=== PATIENT | male | born 1950 | race Hispanic/Latino ===

== ENCOUNTER 2017-02-05 14:22 | Inpatient (IN) | payer MEDICARE, OTHER ==
[2017-02-05] MEDS ORDERED: TYLENOL PO PRN (14:25)
[2017-02-05] MEDS ORDERED: ZOFRAN IV PRN (14:25)
[2017-02-05] MEDS ORDERED: DUONEB 0.5 MG-3 MG/3 ML SOLN IH PRN (14:25)
[2017-02-05] MEDS ORDERED: DULCOLAX PR PRN (14:25)
[2017-02-05] MEDS ORDERED: MILK OF MAGNESIA PO PRN (14:25)
--- NOTE | 2017-02-05 14:25 | History and Physical Report ---
History of Present Illness Date of admission: 02/05/17 14:22 Chief complaint: I dont feel good, and my arm hurts History of present illness: 66 YO Male with CAD, S/P CABG, HTN, HLD, Metabolic Syndrome, Noncompliance directly admitted at the request of the Cardiology team. Pt seen and evaluated in Dr. Washburn's office and found to have weakness, dizziness, and confusion. Pt had not taken any of his postoperative medication as prescribed. Pt evaluated upon arrival to telemetry floor. Pt denies fever, chills, CP, Palpitations, NVD, leg swelling, calf pain, hemoptysis, syncope, prolonged immobility/travel, Individual/family history of DVT/PE, productive cough, trauma , or recent ill contacts. Past History Past Medical History: CAD, hypertension, hyperlipidemia Past Surgical History: Other (CABG, Stent) Social history: , alcohol abuse. denies: smoking Family history: hypertension Medications and Allergies Allergies Allergy/AdvReac Type Severity Reaction Status Date / Time No Known Allergies Allergy Unverified 02/05/17 14:55 Review of Systems All systems: negative Constitutional: other (arm pain, not feeling well) Exam - Constitutional General appearance: Present: no acute distress, well-nourished - EENT Eyes: Present: PERRL ENT: hearing intact, clear oral mucosa - Neck Neck: Present: supple, normal ROM - Respiratory Respiratory effort: normal Respiratory: bilateral: CTA - Cardiovascular Heart Sounds: Present: S1 & S2. Absent: rub, click - Extremities Extremities: pulses symmetrical, No edema Peripheral Pulses: within normal limits - Abdominal General gastrointestinal: Present: soft, non-tender, non-distended, normal bowel sounds Male genitourinary: Present: normal - Integumentary Integumentary: Present: clear, warm, dry - Musculoskeletal Musculoskeletal: gait normal, strength equal bilaterally - Psychiatric Psychiatric: appropriate mood/affect, intact judgment & insight - Neurologic Neurologic: CNII-XII intact, moves all extremities Results - Labs CBC & Chem 7: 02/05/17 15:47 02/05/17 15:47 Assessment and Plan - Patient Problems (1) Angina at rest Current Visit: Yes Status: Acute Plan to address problem: Cardiology team consulted, serial cardiac enzymes, ekg, telemetry monitoring, supportive care. (2) Encephalopathy acute Current Visit: Yes Status: Acute Plan to address problem: Resolved at time of exam, continue current care. (3) CAD (coronary artery disease) Current Visit: Yes Status: Chronic Qualifiers: Coronary Disease-Associated Artery/Lesion type: C [place] vs. transplanted heart: N Associated angina: A Plan to address problem: Cardiology team consulted, continue current care. resume anticoagulation (4) HTN (hypertension) Current Visit: Yes Status: Acute Qualifiers: Hypertension type: H Plan to address problem: monitor bp q shift, continue current therapy (5) DVT prophylaxis Current Visit: Yes Status: Acute
[2017-02-05] MEDS ORDERED: SODIUM CHLORIDE FLUSH SYRINGE 10 ML IV PRN (14:27)
[2017-02-05] MEDS ORDERED: PROVENTIL IH PRN (15:18)
--- NOTE | 2017-02-05 15:32 | Consultation ---
History of Present Illness Consult date: 02/05/17 Requesting physician: BOBBI BOWLING Consult reason: known to you History of present illness: Pt is a 66 YO male with a past medical history significant for CAD, status post PCI in 2002 and s/p CABG in 12/2016. He was sent from our office today per Dr. Washburn for evaluation of weakness. In December 2016, he presented to [facility] with chest pain and dyspnea. He ruled in for a non-ST segment elevated elevation myocardial infarction. Coronary angiography revealed severe three-vessel CAD. He subsequently underwent CABG 4 with SANTOS to the LAD, reverse SVG to PDA, reverse SVG to OM1, reverse SVG to D1 on 01/21/2017. Following his surgery, it appears that he may have developed an acute DVT of one of his lower extremities. He was subsequently transferred to [facility] for rehabilitation where he spent one week. He was discharged home 5 days ago. Although he received a prescription for medications at discharge, he has not filled those prescriptions including Xarelto. Rather, he has been taking his old medications which did not include any anticoagulation. In addition, instead of Coreg 6.25 mg twice a day and 20 mg of Lasix on his new discharge prescription, he has been taking Coreg 25 mg twice a day as in the past with valsartan 160 mg daily. He was brought to the office today by his sister because the patient has been very weak and is unable to ambulate without a wheelchair since last Saturday. He experiences dizziness when he first gets up from the sitting position since last Saturday. Moreover, he lives alone and cannot care for himself. He denies chest pain or dyspnea. He has chronic orthopnea which is unchanged. He complains of right arm numbness which was present since last Saturday. Past History Past Medical History: CAD, hypertension, hyperlipidemia Past Surgical History: CABG Social history: Lives alone, alcohol abuse. denies: smoking, prescription drug abuse Medications and Allergies Allergies Allergy/AdvReac Type Severity Reaction Status Date / Time No Known Allergies Allergy Unverified 02/05/17 14:55 Active Meds: Active Medications Acetaminophen (Tylenol) 650 mg PO Q4H PRN PRN Reason: Pain MILD(1-3)/Fever >100.5/URIARTE Albuterol (Proventil) 2.5 mg IH Q4HRT PRN PRN Reason: Shortness Of Breath Bisacodyl (Dulcolax) 10 mg MS QDAY PRN PRN Reason: Constipation unrelieved by MOM Magnesium Hydroxide (Milk Of Magnesia) 30 ml PO Q4H PRN PRN Reason: Constipation Ondansetron HCl (Zofran) 4 mg IV Q8H PRN PRN Reason: N/V unrelieved by Reglan Sodium Chloride (Sodium Chloride Flush Syringe 10 Ml) 10 ml IV PRN PRN PRN Reason: LINE FLUSH Review of Systems Constitutional: no weight loss, no weight gain, no fever, no chills, no sweats Ears, nose, mouth and throat: no ear pain, no nose pain, no sinus pressure, no sinus pain Cardiovascular: no chest pain, no orthopnea, no palpitations, no rapid/ irregular heart beat, no edema, no syncope, no lightheadedness, no shortness of breath, no dyspnea on exertion Respiratory: no cough, no congestion, no wheezing, no pain Gastrointestinal: no abdominal pain, no nausea, no vomiting, no diarrhea, no constipation, no change in bowel habits Genitourinary Male: no dysuria, no hematuria, no flank pain, no discharge, no urinary frequency, no urinary hesitancy Musculoskeletal: arm numbness/tingling (RUE ), no neck stiffness, no neck pain, no shooting arm pain, no low back pain, no shooting leg pain, no leg numbness/ tingling, no redness of joints Integumentary: no rash, no pruritis, no redness, no sores, no wounds Neurological: weakness (generalized ), numbness (RUE ), no head injury, no paralysis, no parathesias, no tingling, no seizures, no syncope, no lack of coordination, no headaches, no change in speech, no change in mentation, no confusion Endocrine: no cold intolerance, no heat intolerance Hematologic/Lymphatic: no easy bruising, no easy bleeding, no lymphadenopathy Allergic/Immunologic: no urticaria, no wheezing, no persistent infections Physical Examination General appearance: no acute distress HEENT: Positive: PERRL, Normocephaly, Mucus Membranes Moist Neck: Positive: neck supple, trachea midline Cardiac: Positive: Reg Rate and Rhythm, S1/S2 Lungs: Positive: Normal Exam, clear to auscultation, Normal Breath Sounds Neuro: Positive: Grossly Intact, Cranial Nerve 2-12 Intact Abdomen: Positive: Unremarkable, Soft. Negative: Tender Skin: Positive: Clear. Negative: Rash, Wound Musculoskeletal: No Fluid Collection, No Pain, Normal Range of Motion Extremities: Present: normal, upper extr. pulses, lower extr. pulses. Absent: edema Results 02/05/17 15:47 02/05/17 15:47 - Imaging and Cardiology Echo: pending EKG: pending Assessment and Plan Assessment: Generalized weakness / right arm numbness CAD, s/p CABG x 4 on 01/21/2017 HTN HLP RLE Superficial VTE per records ETOH use - drinks 10-12 beers daily. Plan: Obtain echo. Obtain CXR. Obtain EKG. Obtain CBC, CMP, thyroid profile, PT/INR, and cardiac enzymes. Recommend resuming home medications per primary, including Coreg and Xarelto, once vital signs and labwork are obtained. Assessment and plan reviewed with pt at bedside. The patient has been seen in conjunction with Dr. ALIVIA Renee who agrees with the assessment and plan of care.
[2017-02-05 16:06] LABS: Hemoglobin 12.1 gm/dl (11.8-15.2); Mean Corpuscular HGB Conc 32 % (32-34); Mean Corpuscular Hemoglobin 29 pg (28-32); Mean Corpuscular Volume 92 fl (84-94); Platelet Count 506 K/mm3 (140-440); Red Blood Count 4.11 M/mm3 (3.65-5.03); Red Cell Distribution Width 17.9 % (13.2-15.2); White Blood Count 9.6 K/mm3 (4.5-11.0)
[2017-02-05 16:17] LABS: INR 1.06 (0.87-1.13)
[2017-02-05 16:44] LABS: Creatine Kinase MB 46.1 ng/mL (0.0-4.0)
[2017-02-05 16:47] LABS: Albumin 4.2 g/dL (3.9-5); Albumin/Globulin Ratio 1.4 %; BUN/Creatinine Ratio 19.33; Bilirubin,Total 0.7 mg/dL (0.1-1.2); Calcium 9.6 mg/dL (8.4-10.2); Chloride 102.6 mmol/L (98-107); Total Protein 7.1 g/dL (6.3-8.2)
[2017-02-05 20:31] LABS: Creatine Kinase MB 39.2 ng/mL (0.0-4.0)
--- NOTE | 2017-02-05 20:59 | Admit Criteria Form ---
Admission Criteria Documentation: CARDIOLOGY GRG Clinical Indications for Admission to Inpatient Care ( Place 'X' for any and all applicable criteria): Hospital admission is needed for appropriate care of the patient because of ANY ONE of the following (1): [ ] I. Hemodynamic instability as indicated by ALL of the following (1)(2)(3) (4)(5) [ ]a) Vital signs or other findings not as expected for chronic patient condition or baseline [ ]b) Instability indicated by ANY ONE of the following: [ ]i) Hypotension [ ]ii) Symptomatic Tachycardia unresponsive to treatment ( e.g., analgesia, fluids, sedation as indicated) [ ]iii) Inadequate perfusion indicated by ANY ONE of the following: [ ] 1) Lactic acidosis (> 2 mmol/L) [ ] 2) New abnormal capillary refill (> 3 seconds) [ ] 3) Reduced urine output [ ] 4) New altered mental status [ ]iv) Orthostatic vital sign changes unresponsive to treatment (e.g., fluids) [ ]v) IV inotropic or vasopressor medication required to maintain adequate blood pressure or perfusion [ ] II. Severe heart failure as indicated by ANY ONE of the following(17)(18) [ ]a) Respiratory distress [ ]b) Hypotension [ ]c) Anasarca (refractory to outpatient therapy) [ ]d) Cardiac arrhythmias of immediate concern [ ]e) Myocardial ischemia [ ] III. Cardiac arrhythmias or findings of immediate concern indicated by ANY ONE of the following (19)(20): [ ] a) Heart rhythms that are inherently dangerous or unstable indicated by ANY ONE of the following (21)(22)(23): [ ] i) Resuscitated ventricular fibrillation or cardiac arrest [ ] ii) Ventricular escape rhythm [ ] iii) Sustained ventricular tachycardia (30 seconds or more of ventricular rhythm at greater than 100 beats per minute) [ ] iv) Nonsustained ventricular tachycardia and ANY ONE of the following: [ ] 1) Suspected cardiac ischemia as cause or consequence of ventricular tachycardia [ ] 2) In setting of acute myocarditis [ ] b) Unstable cardiac conduction defects indicated by ANY ONE of the following(23)(24)(25) [ ] i) Type II second-degree atrioventricular block [ ]ii) Third-degree atrioventricular block [ ]iii) New-onset left bundle branch block with suspected myocardial ischemia [ ]c) Any heart rhythm and ANY ONE of the following (21)(22)(26)(27) (28) [ ] i) Continuous long-term ECG monitoring needed (e.g., initiation of drug requiring monitoring for more than 24 hours) [ ] ii) Patient has automatic implanted cardioverter defibrillator that is repeatedly firing, malfunctioning, or in need of immediate adjustment of settings beyond the scope of ambulatory or observation care [ ]d) Heart rhythms of concern due to ANY ONE of the following: [ ] i) Hypotension [ ] ii) Respiratory distress [ ] iii) Association with other significant symptoms (e.g., bradycardia with syncope or ongoing dizziness, supraventricular tachycardia with chest pain (14)(15)(17) [ ] IV. Monitoring for cardiac contusion beyond the scope of observation care needed [A](30)(31)(32) [ ] V. Surgical or device complication (e.g., valve replacement complication , pacemaker dysfunction) (35)(41)(44)(45)(46) [ ] . Inpatient palliative care needed. [B](49) Also use Inpatient Palliative Care Criteria [ ] VII. Nonbacterial thrombotic (marantic) endocarditis (36)(43)(47)(48) [X ] VIII. Cardiology condition, symptom, or finding for which emergency and observation care has failed or are not considered appropriate. [ ] IX. Acute valvular disease requiring inpatient as indicated by ANY ONE of the following (41) [ ]a) Acute valvular regurgitation (42) [ ]b) Noninfectious valvulitis (43) [ ]c) Obstructive valve thrombosis [ ]d) Paravalvular leak [ ]e) Other significant valvular disorder remaining after emergency or observation level of care (as appropriate) [ ]X. Pericardial disease requiring inpatient treatment as indicated by ANY ONE of the following (33)(34)(35)(36)(37) [ ]a) Suspected tamponade (38)(39)(40) [ ]b) Hemopericardium [ ]c) Other significant pericardial disorder remaining after emergency or observation level of care (as appropriate) [ ] XI. Cardiac ischemia beyond scope of emergency and observation care. [ ] XII. Hypertension requiring inpatient treatment as indicated by ANY ONE of the following (6)(7)(8) [ ]a) SBP greater than 220 mm Hg or DBP greater than 120 mmHg despite treatment [ ]b) SBP greater than 140 mm Hg or DBP greater than 100 mm Hg with evidence of acute end organ damage as indicated by ANY ONE of the following [ ] i) Altered mental status [ ] ii) Acute renal failure as indicated by new onset of ANY ONE of the following (9)(10)(11)(12)(13) [ ]1) 3-fold rise in serum creatinine from baseline [ ]2) Serum creatinine greater than 4 mg/dL ( 354 micromoles/L) with acute rise greater than 0.5 mg/dL (44.2 micromoles/L) [ ]3) Reduction of more than 75% in estimated glomerular filtration rate from baseline [ ]4) Estimated glomerular filtration rate less than 35 mL/min/1.73m2 (0.59 mL/sec/1.73m2) in child up to 18 years of age [ ]5) Cessation of urine output indicated by ALL of the following [ ]A. Adequate volume status [ ]B. Inadequate urine output as indicated by ANY ONE of the following [ ]a. Urine output less than 0.3 mL/kg/hr for 24 hours [ ]b. Anuria (urine output less than 0.1 mL/kg/hr) for 12 hours [ ] iii) Aortic dissection [ ] iv) Myocardial Ischemia [ ] v) Left ventricular heart failure [ ]vi) Retinal Hemorrhage [ ]vii) Other significant finding [ ]c) Hypertension in child requiring inpatient treatment as indicated by ALL of the following(14)(15)(16) [ ] i) Outpatient treatment not effective, not available, or not appropriate [ ]ii) SBP or DBP greater than 95th percentile for age [ ]iii) Evidence of acute end organ damage as indicated by ANY ONE of the following [ ]1) Altered mental status [ ]2) Acute renal failure as indicated by new onset of ANY ONE of the following(9)(10)(11)(12)(13) [ ]A. 3-fold rise in serum creatinine from baseline [ ]B. Serum creatinine greater than 4 mg/dL (354 micromoles/L) with acute rise greater than 0.5 mg/dL (44.2 micromoles/L) [ ]C. Reduction of more than 75% in estimated glomerular filtration rate from baseline [ ]D. Estimated glomerular filtration rate less than 35 mL/min/1.73m2 (0.59 mL/sec/1.73m2) in child up to 18 years of age [ ]E. Cessation of urine output indicated by ALL of the following [ ]a. Adequate volume status [ ]b. Inadequate urine output as indicated by ANY ONE of the following [ ]i) Urine output less than 0.3 mL/kg/hr for 24 hours [ ]ii) Anuria ( urine output less than 0.1 mL/kg/hr) for 12 hours [ ]3) Severe headache [ ]4) Visual disturbance [ ]5) Retinal hemorrhage [ ]6) Other significant finding [ ]XIII. Complications of transplanted heart indicated by ANY ONE of the following(61): [ ]a) Acute graft rejection requiring inpatient management (eg, intravenous immunosuppression)(62)(63) [ ]b) Acute graft heart failure indicated by ANY ONE of the following(64): [ ]i) Hemodynamic instability [ ]ii) Cardiac arrhythmias of immediate concern [ ]iii) Pulmonary edema that is very severe (eg, mechanical ventilation needed, imminent or likely, need for 100% oxygen to keep oxygen saturation above 90%) [ ]iv) Pulmonary edema that is persistent as indicated by ALL of the following: [ ]1) New need for oxygen therapy to keep oxygen saturation above 90% (or increased FiO2 need from baseline) [ ]2) Has not improved sufficiently with emergency department or observation care IV diuretics or other heart failure treatments[E] [ ]v) Altered mental status that is severe or persistent [ ]vi) Increased creatinine (new on laboratory test) with reduction of more than 50% in estimated glomerular filtration rate from baseline [ ]vii) Progressively (ongoing) rising creatinine (known from past laboratory test) with reduction of more than 25% in estimated glomerular filtration rate from baseline [ ]viii) Acute renal failure [ ]ix) Acute peripheral ischemia (eg, examination shows pulseless, cool, mottled, or cyanotic extremity) [ ]x) Pulmonary artery catheter monitoring needed [ ]xi) Other sign or symptom of heart failure requiring inpatient treatment (ie, too severe or not responsive to outpatient and observation care treatment) [ ]c) Infection requiring inpatient management (eg, Hemodynamic instability, need for intravenous antimicrobial treatment)(66)(67)(68)(69)(70) [ ]d) Cardiac allograft vasculopathy requiring inpatient management ( eg evidence of cardiac ischemia)(71) [ ]e) Other complication of transplanted heart (eg, stroke, severe pulmonary hypertension, severe valvular dysfunction) requiring inpatient management(72) The original [facility] [email or web address] content created by [facility] [employer] has been revised. The portions of the content which have been revised are identified through the use of italic text or in bold, and [facility] has neither reviewed nor approved the modified material. All other unmodified content is copyright [facility] [employer]. Please see references footnoted in the original [facility] [employer] edition 2016 Admission Criteria Met: Yes
[2017-02-06] MEDS: MORPHINE IV PRN ×5 (00:55→22:21)
--- NOTE | 2017-02-06 08:46 | XRay Report ---
CERVICAL SPINE SERIES THREE VIEWS: 02/05/17 15:07:00 CLINICAL: Neck pain. FINDINGS: Status post in anterior fusion at C7-T1. Normal alignment through T2. Large bridging anterior osteophytes from C3-4 through C5-6. A smaller posterior osteophyte at C5-6. Normal appearance of the hardware. The odontoid and C1 are intact. Minimal facet joint disease. The soft tissues and airway are normal. IMPRESSION: Status post anterior fusion C7-T1. Extensive degenerative change with large anterior osteophytes from C3-4 through C5-6. The osteophytes are large enough to possibly impair swallowing.
--- NOTE | 2017-02-06 08:48 | XRay Report ---
X-ray RIGHT SHOULDER ONE VIEW: 02/05/17 15:07:00 CLINICAL: Right shoulder pain. FINDINGS: Normal glenohumeral alignment. Mild acromioclavicular joint arthritis. No fracture or dislocation. No bone lesion. Normal soft tissues. IMPRESSION: Mild acromioclavicular joint arthritis but otherwise normal.
--- NOTE | 2017-02-06 08:56 | XRay Report ---
AP CHEST : 02/05/17 15:07:00 CLINICAL: Chest pain. COMPARISON:05/20/08 FINDINGS: Normal heart and pulmonary vessels.The mediastinum is relatively wide but this is partially due to rotation and is not significantly changed compared to the prior exam. The lungs are normally expanded and clear. The bones and soft tissues are unremarkable.Median sternotomy wires. IMPRESSION: No acute cardiopulmonary process.
[2017-02-06] MEDS: XARELTO PO SCH (10:52)
--- NOTE | 2017-02-06 11:12 | Progress Note ---
Assessment and Plan Assessment: Generalized weakness / right arm numbness & tingling - right shoulder XRay demonstrated mild joint arthritis; cervical spine series demonstrated anterior fusion, extensive degenerative change with large anterior osteophytes which are large enough to possibly impair swallowing per radiology / ? radiculopathy CAD, s/p CABG x 4 on 01/21/2017 HTN HLP RLE Superficial VTE in saphenous vein - on Xarelto. ETOH use - drinks 10-12 beers daily. Plan: Await echo. Resume home Coreg, ASA 81, and lipitor. Xarelto per primary. Consult neurology in regards to ? radiculopathy / RUE numbness and tingling. Assessment and plan reviewed with pt at bedside. The patient has been seen in conjunction with Dr. Ty Renee who agrees with the assessment and plan of care. Subjective Date of service: 02/06/17 Principal diagnosis: weakness Interval history: Pt resting comfortably in bed, denies any cardiac complaints. c/o right shoulder aching pain and right arm numbness/tingling. VSS, no acute events overnight. Objective Last Vital Signs Temp 98.8 F 02/06/17 05:55 Pulse 70 02/06/17 05:55 Resp 20 02/06/17 05:55 BP 95/50 02/06/17 05:55 Pulse Ox 96 02/06/17 08:55 - Physical Examination General: Appears Well, No Apparent Distress HEENT: Positive: PERRL, Normocephaly, Mucus Membranes Moist Neck: Positive: neck supple, trachea midline Cardiac: Positive: Reg Rate and Rhythm, S1/S2 Lungs: Positive: Normal Exam, clear to auscultation, Normal Breath Sounds Neuro: Positive: Grossly Intact, Cranial Nerve 2-12 Intact, Other (RUE numbness/ tingling ) Abdomen: Positive: Unremarkable, Soft. Negative: Tender Skin: Positive: Clear. Negative: Rash, Wound Musculoskeletal: No Fluid Collection, No Pain, Normal Range of Motion Extremities: Present: normal, upper extr. pulses, lower extr. pulses. Absent: edema - Labs and Meds Cardiac Enzymes 02/05/17 02/05/17 02/05/17 Range/Units 15:40 15:47 19:26 AST 59 H (5-40) units/L CK-MB (CK-2) 46.1 H 39.2 H (0.0-4.0) ng/mL Coagulation 02/05/17 Range/Units 15:47 PT 13.7 (12.2-14.9) Sec. INR 1.06 (0.87-1.13) Lipids 02/05/17 Range/Units 15:40 Triglycerides 186 H (2-149) mg/dL Cholesterol 192 (50-199) mg/dL HDL Cholesterol 34 L (40-59) mg/dL Cholesterol/HDL Ratio 5.64 % CBC 02/05/17 Range/Units 15:47 WBC 9.6 (4.5-11.0) K/mm3 RBC 4.11 (3.65-5.03) M/mm3 Hgb 12.1 (11.8-15.2) gm/dl Hct 38.0 (35.5-45.6) % Plt Count 506 H (140-440) K/mm3 Comprehensive Metabolic Panel 02/05/17 Range/Units 15:47 Sodium 142 (137-145) mmol/L Potassium 4.0 (3.6-5.0) mmol/L Chloride 102.6 (98-107) mmol/L Carbon Dioxide 20 L (22-30) mmol/L BUN 29 H (9-20) mg/dL Creatinine 1.5 (0.8-1.5) mg/dL Glucose 129 H (75-100) mg/dL Calcium 9.6 (8.4-10.2) mg/dL AST 59 H (5-40) units/L ALT 30 (7-56) units/L Alkaline Phosphatase 145 H (35-129) units/L Total Protein 7.1 (6.3-8.2) g/dL Albumin 4.2 (3.9-5) g/dL - Imaging and Cardiology EKG: report reviewed Echo: pending - Telemetry EKG Rhythm: Sinus Rhythm - EKG Sinus rhythms and dysrhythmias: sinus rhythm
--- NOTE | 2017-02-06 12:29 | Progress Note ---
Assessment and Plan Assessment and plan: 66 YO Male with CAD, S/P CABG, HTN, HLD, Metabolic Syndrome, Noncompliance directly admitted at the request of the Cardiology team. Pt seen and evaluated in Dr. Washburn's office and found to have weakness, dizziness, and confusion. Pt had not taken any of his postoperative medication as prescribed. Pt evaluated upon arrival to telemetry floor. Pt denies fever, chills, CP, Palpitations, NVD, leg swelling, calf pain, hemoptysis, syncope, prolonged immobility/travel, Individual/family history of DVT/PE, productive cough, trauma , or recent ill contacts. 1. RUE numbness and tingling, fup Neurology consult fup MR brain and MR C spine 2. Generalized weakness 3. Etoh abuse 4. CAD sp CABG 5. Poor medication compliance 6. Superficial Venous Thrombosis of LE [facility] Physical - Constitutional Vitals: Temp Pulse Resp BP Pulse Ox 98.8 F 70 20 95/50 96 02/06/17 05:55 02/06/17 05:55 02/06/17 05:55 02/06/17 05:55 02/06/17 08:55 General appearance: Present: no acute distress, well-nourished Results - Labs CBC & Chem 7: 02/05/17 15:47 02/05/17 15:47 Labs: Laboratory Last Values WBC 9.6 K/mm3 (4.5-11.0) 02/05/17 15:47 RBC 4.11 M/mm3 (3.65-5.03) 02/05/17 15:47 Hgb 12.1 gm/dl (11.8-15.2) 02/05/17 15:47 Hct 38.0 % (35.5-45.6) 02/05/17 15:47 MCV 92 fl (84-94) 02/05/17 15:47 MCH 29 pg (28-32) 02/05/17 15:47 MCHC 32 % (32-34) 02/05/17 15:47 RDW 17.9 % (13.2-15.2) H 02/05/17 15:47 Plt Count 506 K/mm3 (140-440) H 02/05/17 15:47 PT 13.7 Sec. (12.2-14.9) 02/05/17 15:47 INR 1.06 (0.87-1.13) 02/05/17 15:47 Sodium 142 mmol/L (137-145) 02/05/17 15:47 Potassium 4.0 mmol/L (3.6-5.0) 02/05/17 15:47 Chloride 102.6 mmol/L (98-107) 02/05/17 15:47 Carbon Dioxide 20 mmol/L (22-30) L 02/05/17 15:47 Anion Gap 23 mmol/L 02/05/17 15:47 BUN 29 mg/dL (9-20) H 02/05/17 15:47 Creatinine 1.5 mg/dL (0.8-1.5) 02/05/17 15:47 Estimated GFR 47 ml/min 02/05/17 15:47 BUN/Creatinine Ratio 19.33 % 02/05/17 15:47 Glucose 129 mg/dL (75-100) H 02/05/17 15:47 Calcium 9.6 mg/dL (8.4-10.2) 02/05/17 15:47 Total Bilirubin 0.7 mg/dL (0.1-1.2) 02/05/17 15:47 AST 59 units/L (5-40) H 02/05/17 15:47 ALT 30 units/L (7-56) 02/05/17 15:47 Alkaline Phosphatase 145 units/L (35-129) H 02/05/17 15:47 Total Creatine Kinase 339 units/L (55-170) H 02/05/17 19:26 CK-MB (CK-2) 39.2 ng/mL (0.0-4.0) H 02/05/17 19:26 CK-MB (CK-2) Rel Index 11.5 (0-4) H 02/05/17 19:26 Troponin T 0.782 ng/mL (0.00-0.029) H* 02/05/17 19:26 Total Protein 7.1 g/dL (6.3-8.2) 02/05/17 15:47 Albumin 4.2 g/dL (3.9-5) 02/05/17 15:47 Albumin/Globulin Ratio 1.4 % 02/05/17 15:47 Triglycerides 186 mg/dL (2-149) H 02/05/17 15:40 Cholesterol 192 mg/dL (50-199) 02/05/17 15:40 LDL Cholesterol Direct 121 mg/dL (50-130) 02/05/17 15:40 HDL Cholesterol 34 mg/dL (40-59) L 02/05/17 15:40 Cholesterol/HDL Ratio 5.64 % 02/05/17 15:40 TSH 4.560 mlU/mL (0.270-4.200) H 02/05/17 15:55 Thyroxine (T4) 8.0 ug/dL (4.0-12.0) 02/05/17 15:55
[2017-02-06] MEDS: BABY ASPIRIN PO SCH (13:23)
[2017-02-06] MEDS: COREG PO SCH ×2 (13:23→21:31)
[2017-02-07] MEDS: MORPHINE IV PRN ×4 (03:35→22:12)
[2017-02-07] MEDS: BABY ASPIRIN PO SCH (09:33)
[2017-02-07] MEDS: COREG PO SCH ×2 (09:33→22:12)
[2017-02-07] MEDS: XARELTO PO SCH (09:34)
--- NOTE | 2017-02-07 10:30 | Consultation ---
History of Present Illness Consult date: 02/07/17 Requesting physician: ARNEL SCOTT Reason for Consult: R sided numbness Chief complaint: R arm numbness and tingling History of present illness: 66 YO M 3 weeks ago had CABG. Post op he noted R arm numbness and tingling and possible mild weakness. He affirms pain throughout the arm but denies neck pain. Sx may have preceded surgery but pt is not clear. Sx are constant. There are no clear aggravating, relieving or temporal factors beyond some association w/ pain when elevating the R arm. Severity was enough to cause inability to effectively use the right arm. Past History Past Medical History: CAD, hypertension, hyperlipidemia Past Surgical History: CABG, Other (CABG, Stent) Social history: , alcohol abuse. denies: smoking, prescription drug abuse, IV drug use Family history: hypertension Medications and Allergies Allergies Allergy/AdvReac Type Severity Reaction Status Date / Time No Known Allergies Allergy Unverified 02/05/17 14:55 Active Meds: Active Medications Acetaminophen (Tylenol) 650 mg PO Q4H PRN PRN Reason: Pain MILD(1-3)/Fever >100.5/URIARTE Albuterol (Proventil) 2.5 mg IH Q4HRT PRN PRN Reason: Shortness Of Breath Aspirin (Baby Aspirin) 81 mg PO QDAY [facility] Last Admin: 02/07/17 09:33 Dose: 81 mg Atorvastatin Calcium (Lipitor) 80 mg PO QHS [facility] Last Admin: 02/06/17 21:31 Dose: 80 mg Bisacodyl (Dulcolax) 10 mg NE QDAY PRN PRN Reason: Constipation unrelieved by MOM Carvedilol (Coreg) 3.125 mg PO BID [facility] Last Admin: 02/07/17 09:33 Dose: 3.125 mg Magnesium Hydroxide (Milk Of Magnesia) 30 ml PO Q4H PRN PRN Reason: Constipation Morphine Sulfate (Morphine) 2 mg IV Q4H PRN PRN Reason: Pain, Moderate (4-6) Last Admin: 02/07/17 09:34 Dose: 2 mg Ondansetron HCl (Zofran) 4 mg IV Q8H PRN PRN Reason: N/V unrelieved by Reglan Last Admin: 02/07/17 09:34 Dose: 4 mg Rivaroxaban (Xarelto) 10 mg PO QDAY EBONY PRN Reason: Protocol Last Admin: 02/07/17 09:34 Dose: 10 mg Sodium Chloride (Sodium Chloride Flush Syringe 10 Ml) 10 ml IV PRN PRN PRN Reason: LINE FLUSH Review of Systems All systems: negative Constitutional: weakness Cardiovascular: chest pain, shortness of breath, dyspnea on exertion Respiratory: shortness of breath, dyspnea on exertion Neurological: weakness, parathesias, numbness, tingling, balance difficulties, motor disturbance, sensory deficit, no convulsions, no change in speech, no double vision, no loss of vision, no paralysis Physical Examination - Vital Signs Vital Signs: Vital Signs Temp Pulse Resp BP Pulse Ox 97.5 F L 86 20 116/2 99 02/05/17 16:05 02/05/17 16:05 02/05/17 16:05 02/05/17 16:05 02/05/17 16:05 - Constitutional General appearance: comfortable, older than stated age - EENT EENT: Present: ATNC, PERRL, mucous membranes moist, hearing intact, vision intact - Respiratory Respiratory: Present: chest non-tender, normal breath sounds, no respiratory distress - Cardiovascular Cardiovascular: Present: regular rate Extremities: Present: no peripheral edema bilatateraly, no clubbing, cyanosis, no inflammation, no ischemia or petechiae - Gastrointestinal Gastrointestinal: Present: normoactive bowel sounds, soft, non-distended - Integumentary Integumentary: Present: normal - Neurologic Cranial nerve examination: PERRL, EOMI, VFF, V1/V2/V3 grossly intact, face symmetric, tongue midline, intact, intact shoulder shrug, intact cough reflex, Intact Vestibulo-ocular r, intact corneal reflex, normal palatal elevation Speech examination: intact Sensorimotor examination: intact Detailed motor examination: full strength in all barbara Motor examination - right side: 03/01: biceps, triceps, wrist flexion, wrist extension, tobacco sample puller, hip flexors, knee extensors, dorsiflexion, toe extension (EHL) , plantarflexion Motor examination - left side: 03/01: biceps, triceps, wrist flexion, wrist extension, tobacco sample puller, hip flexors, knee extensors, dorsiflexion, toe extension (EHL) , plantarflexion Detailed sensory examination: light touch, temperature (diminished on R arm) Reflex and gait examination: intact Reflexes: 1+: ankle, 2+: bicep, knee, tricep - Musculoskeletal Musculoskeletal: Present: pain in joint (throughout R arm elbow and shoulder), no fluid collection, normal range of motion - Psychiatric Psychiatric: Present: mood/affect appropriate, cooperative Results - Laboratory Findings CBC and BMP: 02/05/17 15:47 02/05/17 15:47 Abnormal Lab Findings: Abnormal Labs 02/05/17 02/05/17 02/05/17 15:40 15:47 15:47 RDW 17.9 H Plt Count 506 H Carbon Dioxide 20 L BUN 29 H Glucose 129 H AST 59 H Alkaline Phosphatase 145 H Total Creatine Kinase 380 H CK-MB (CK-2) 46.1 H CK-MB (CK-2) Rel Index 12.1 H Troponin T 0.705 H* Triglycerides 186 H HDL Cholesterol 34 L TSH 02/05/17 02/05/17 15:55 19:26 RDW Plt Count Carbon Dioxide BUN Glucose AST Alkaline Phosphatase Total Creatine Kinase 339 H CK-MB (CK-2) 39.2 H CK-MB (CK-2) Rel Index 11.5 H Troponin T 0.782 H* Triglycerides HDL Cholesterol TSH 4.560 H Assessment and Plan 66 YO Mx HTN/HLD/CAD s/p CABG 3 weeks ago who subsequently c/o progressive R arm numbness/tingling assoc w/ ? weakness but painful throughout including elbow /wrist but not neck assoc w/ passive motion. Neuro exam intact w/o deficit beyond R arm decreased sensation. I suspect MSK process rather than FLORIST process but will r/o. Plan and Recommendation: 1. No indication for pharmacologic thrombolysis with IV tPA or mechanical thrombectomy due to last known normal > 6 hrs from presentation. Current NIHSS 1. 2. Telemetry bed w/ Q4 hour neuro checks 3. Brain imaging: MRI Brain & C-spine w/o Marbin Stroke Protocol 4. If MRI Brain confirms infarct: A. Vascular Imaging: MRA Head w/o Marbin & MRA Neck w/ Marbin Stroke Protocol OR CTA Head/Neck w/ Contrast OR Bilateral Carotid Duplex U/S B. TTE to eval for possible cardiac source of embolism C. Serum Labs: HgA1c, LDL 5. Can lower MAPs by 10-15% daily to reach goal SBP 120-160 as any permissive HTN period is complete. 6. stroke prevention: Can cont home AP/AC therapy for now. If MRI neg for infarct there is no neurologic indication for ASA/AC/statin change. 7. F/E/N: isotonic IVF prn, prn replete, oral diet as pt passed bedside speech/ swallow eval 8 DVT Prophylaxis 9. Stroke education, PT/OT/Speech Therapy consults, CM evaluation 10. For any changes in neurologic status, pls obtain STAT CTH w/o contrast and call neurology
--- NOTE | 2017-02-07 10:59 | Progress Note ---
Assessment and Plan Assessment: Generalized weakness / right arm numbness & tingling - right shoulder XRay demonstrated mild joint arthritis; cervical spine series demonstrated anterior fusion, extensive degenerative change with large anterior osteophytes which are large enough to possibly impair swallowing per radiology / ? radiculopathy CAD, s/p CABG x 4 on 01/21/2017 HTN HLP RLE Superficial VTE in saphenous vein - on Xarelto. ETOH use - drinks 10-12 beers daily. Plan: Echo reviewed with [facility]. Resume home Coreg, ASA 81, and lipitor. Xarelto per primary. Neurology w/u in process. Assessment and plan reviewed with pt at bedside. The patient has been seen in conjunction with Dr. Ty Renee who agrees with the assessment and plan of care. Subjective Date of service: 02/07/17 Principal diagnosis: weakness Interval history: Pt resting comfortably up in chair, denies any cardiac complaints. c/o right shoulder aching pain and right arm numbness/tingling. VSS, no acute events overnight. Objective Last Vital Signs Temp 98.5 F 02/07/17 07:15 Pulse 87 02/07/17 10:00 Resp 18 02/07/17 07:15 BP 127/61 02/07/17 09:33 Pulse Ox 98 02/07/17 07:15 - Physical Examination General: Appears Well, No Apparent Distress HEENT: Positive: PERRL, Normocephaly, Mucus Membranes Moist Neck: Positive: neck supple, trachea midline Cardiac: Positive: Reg Rate and Rhythm, S1/S2 Lungs: Positive: Normal Exam, clear to auscultation, Normal Breath Sounds Neuro: Positive: Grossly Intact, Cranial Nerve 2-12 Intact, Other (RUE numbness/ tingling ) Abdomen: Positive: Unremarkable, Soft. Negative: Tender Skin: Positive: Clear, Other (sternotomy scar noted). Negative: Rash, Wound Musculoskeletal: No Fluid Collection, No Pain, Normal Range of Motion Extremities: Present: normal, upper extr. pulses, lower extr. pulses. Absent: edema - Imaging and Cardiology EKG: report reviewed Echo: report reviewed (02/05/2017: EF 55 - 60%) - Telemetry EKG Rhythm: Sinus Rhythm - EKG Sinus rhythms and dysrhythmias: sinus rhythm
--- NOTE | 2017-02-07 13:53 | Magnetic Resonance Report ---
MRI scan of brain: History: Right upper extremity numbness. Technique: Multiplanar, multisequence images were obtained without contrast injection. Findings: No evidence of restricted diffusion. Ventricles are normal in size and midline in location. No evidence of acute ischemia, hemorrhage or mass. No extra-axial fluid collection. Normal brainstem and cerebellum. Normal sinuses. Impression: No acute intracranial abnormality.
--- NOTE | 2017-02-07 14:47 | Magnetic Resonance Report ---
MRI of the cervical spine without contrast. History: Right upper extremity numbness. Procedure: Sagittal T1-weighted, T2-weighted, inversion recovery images, and axial T2-weighted images were used in the study. Findings: The cervical cord is normal in size and configuration with no evidence of edema or other cord signal abnormalities. The C2-3 level is unremarkable. At C3-4, there is extensive anterior hypertrophic change, but no significant posterior hypertrophic change impinging on the subarachnoid space. There is no disc pathology. At the C4-5 level, anterior hypertrophic changes are again noted with no evidence of disc pathology or spinal stenosis. At C5-6, there is no significant disc pathology or spinal stenosis. Anterior osteophyte is again noted. At C6-7, anterior fusion has been performed with normal contour of the thecal sac and patency of the neural foramina. The artifacts related to the orthopedic hardware or minimal. The C7-T1 level is unremarkable. The cervical medullary junction is normal. The Cerebellar tonsils are in normal position. Impression: 1. Postsurgical changes at C6-7 with anterior fusion apparatus. 2. No evidence of significant disc pathology or spinal stenosis. 3. Multilevel extensive anterior hypertrophic changes.
--- NOTE | 2017-02-07 22:00 | Progress Note ---
Assessment and Plan Assessment and plan: 66 YO Male with CAD, S/P CABG, HTN, HLD, Metabolic Syndrome, Noncompliance directly admitted at the request of the Cardiology team. Pt seen and evaluated in Dr. Washburn's office and found to have weakness, dizziness, and confusion. Pt had not taken any of his postoperative medication as prescribed. Pt evaluated upon arrival to telemetry floor. Pt denies fever, chills, CP, Palpitations, NVD, leg swelling, calf pain, hemoptysis, syncope, prolonged immobility/travel, Individual/family history of DVT/PE, productive cough, trauma , or recent ill contacts. 1. RUE numbness and tingling, Neuro input appreciated, MR brain wnl, MR C spine shows some Degenerative changes with evidence of previous spinal fusion surgery without any cord compression or compromise patient admits that symptoms are chronic and that they come and go, but he feels better now, but was unable to care for himself at home Fup B1, B12 and folate levels 2. Generalized weakness 3. Etoh abuse 4. CAD sp CABG 5. Poor medication compliance 6. Superficial Venous Thrombosis of LE continue Xarelto Dispo: to SNF, will be dc in am if he continues to improve Hospitalist Physical - Constitutional Vitals: Temp Pulse Resp BP Pulse Ox 98.1 F 94 H 20 96/60 94 02/07/17 19:55 02/07/17 19:55 02/07/17 19:55 02/07/17 19:55 02/07/17 19:55 General appearance: Present: no acute distress, well-nourished Results - Labs CBC & Chem 7: 02/05/17 15:47 02/05/17 15:47 Labs: Laboratory Last Values WBC 9.6 K/mm3 (4.5-11.0) 02/05/17 15:47 RBC 4.11 M/mm3 (3.65-5.03) 02/05/17 15:47 Hgb 12.1 gm/dl (11.8-15.2) 02/05/17 15:47 Hct 38.0 % (35.5-45.6) 02/05/17 15:47 MCV 92 fl (84-94) 02/05/17 15:47 MCH 29 pg (28-32) 02/05/17 15:47 MCHC 32 % (32-34) 02/05/17 15:47 RDW 17.9 % (13.2-15.2) H 02/05/17 15:47 Plt Count 506 K/mm3 (140-440) H 02/05/17 15:47 PT 13.7 Sec. (12.2-14.9) 02/05/17 15:47 INR 1.06 (0.87-1.13) 02/05/17 15:47 Sodium 142 mmol/L (137-145) 02/05/17 15:47 Potassium 4.0 mmol/L (3.6-5.0) 02/05/17 15:47 Chloride 102.6 mmol/L (98-107) 02/05/17 15:47 Carbon Dioxide 20 mmol/L (22-30) L 02/05/17 15:47 Anion Gap 23 mmol/L 02/05/17 15:47 BUN 29 mg/dL (9-20) H 02/05/17 15:47 Creatinine 1.5 mg/dL (0.8-1.5) 02/05/17 15:47 Estimated GFR 47 ml/min 02/05/17 15:47 BUN/Creatinine Ratio 19.33 % 02/05/17 15:47 Glucose 129 mg/dL (75-100) H 02/05/17 15:47 Calcium 9.6 mg/dL (8.4-10.2) 02/05/17 15:47 Total Bilirubin 0.7 mg/dL (0.1-1.2) 02/05/17 15:47 AST 59 units/L (5-40) H 02/05/17 15:47 ALT 30 units/L (7-56) 02/05/17 15:47 Alkaline Phosphatase 145 units/L (35-129) H 02/05/17 15:47 Total Creatine Kinase 339 units/L (55-170) H 02/05/17 19:26 CK-MB (CK-2) 39.2 ng/mL (0.0-4.0) H 02/05/17 19:26 CK-MB (CK-2) Rel Index 11.5 (0-4) H 02/05/17 19:26 Troponin T 0.782 ng/mL (0.00-0.029) H* 02/05/17 19:26 Total Protein 7.1 g/dL (6.3-8.2) 02/05/17 15:47 Albumin 4.2 g/dL (3.9-5) 02/05/17 15:47 Albumin/Globulin Ratio 1.4 % 02/05/17 15:47 Triglycerides 186 mg/dL (2-149) H 02/05/17 15:40 Cholesterol 192 mg/dL (50-199) 02/05/17 15:40 LDL Cholesterol Direct 121 mg/dL (50-130) 02/05/17 15:40 HDL Cholesterol 34 mg/dL (40-59) L 02/05/17 15:40 Cholesterol/HDL Ratio 5.64 % 02/05/17 15:40 Vitamin B12 415.2 pg/mL (211-911) 02/07/17 17:13 Folate 12.87 ng/mL (7.3-26.0) 02/07/17 17:13 TSH 4.560 mlU/mL (0.270-4.200) H 02/05/17 15:55 Thyroxine (T4) 8.0 ug/dL (4.0-12.0) 02/05/17 15:55
[2017-02-08] MEDS: MORPHINE IV PRN ×2 (04:07→10:12)
[2017-02-08 07:40] VITALS: BP 125/74
--- NOTE | 2017-02-08 08:24 | Discharge Summary ---
Providers - Providers Date of Admission: 02/05/17 15:07 Attending physician: ARNEL SCOTT MD 02/05/17 Consult to Cardiac Rehabilitation [CONS] Routine Reason For Exam: Phase I 02/05/17 14:32 Consult to Physician [CONS] Routine Consulting Provider: LISA CAUSEY Reason For Exam: Encephalopathy, Nstemi Place consult to:: cardiology Notified:: irina 02/06/17 11:13 Consult to Physician [CONS] Routine Consulting Provider: ROSALBA FISHER Reason For Exam: radiculopathy Place consult to:: Dr. Fisher Notified:: Annabelle VIRK Phone number called:: [phone]. [phone] Was contact made?: Yes If yes, spoke with:: Voicemail with consult info left for Laly Desean Time called:: 12:52 02/06/17 12:29 Consult to Physician [CONS] Routine Consulting Provider: ROSALBA FISHER Reason For Exam: RUE numbess and tingling Place consult to:: Dr. Fisher Notified:: Annabelle VIRK Phone number called:: Ext. [phone] Was contact made?: Yes If yes, spoke with:: Voicemail with consult info left for Laly Desean Time called:: 12:52 02/06/17 12:44 Physical Therapy Evaluation and Treat [CONS] Routine Comment: Reason For Exam: skill level for SNF Primary care physician: TACK PICKER Hospitalization Hospital course: 66 YO Male with CAD, S/P CABG, HTN, HLD, Metabolic Syndrome, Noncompliance directly admitted at the request of the Cardiology team. Pt seen and evaluated in Dr. Causey's office and found to have weakness, dizziness, and confusion. Pt had not taken any of his postoperative medication as prescribed. Pt evaluated upon arrival to telemetry floor. Pt denies fever, chills, CP, Palpitations, NVD, leg swelling, calf pain, hemoptysis, syncope, prolonged immobility/travel, Individual/family history of DVT/PE, productive cough, trauma , or recent ill contacts. 1. RUE numbness and tingling, Neuro input appreciated, MR brain wnl, MR C spine shows some Degenerative changes with evidence of previous spinal fusion surgery without any cord compression or compromise patient admits that symptoms are chronic and that they come and go, but he feels better now, but was unable to care for himself at home Fup B1, B12 and folate levels 2. Generalized weakness 3. Etoh abuse 4. CAD sp CABG 5. Poor medication compliance 6. Superficial Venous Thrombosis of LE continue Xarelto Dispo: to SNF, will be dc in am if he continues to improve Disposition: DC/TX SNF [facility] Time spent for discharge: 35 minutes Core Measure Documentation - Palliative Care Palliative Care/ Comfort Measures: Not Applicable - Core Measures Any of the following diagnoses?: heart failure - Heart Failure Discharge Requirements MIMA/ARB for LVSD if EF <40%: Yes Beta magdy at discharge: Yes Exam - Constitutional Vitals: Temp Pulse Resp BP Pulse Ox 98.1 F 89 18 125/74 99 02/08/17 07:00 02/08/17 07:00 02/08/17 07:00 02/08/17 07:00 02/08/17 07:00 General appearance: Present: no acute distress, well-nourished - EENT Eyes: Present: PERRL ENT: hearing intact, clear oral mucosa - Neck Neck: Present: supple, normal ROM - Respiratory Respiratory effort: normal Respiratory: bilateral: CTA - Cardiovascular Heart Sounds: Present: S1 & S2. Absent: rub, click - Extremities Extremities: pulses symmetrical, No edema Peripheral Pulses: within normal limits - Abdominal General gastrointestinal: Present: soft, non-tender, non-distended, normal bowel sounds Male genitourinary: Present: normal - Integumentary Integumentary: Present: clear, warm, dry - Musculoskeletal Musculoskeletal: gait normal, strength equal bilaterally - Psychiatric Psychiatric: appropriate mood/affect, intact judgment & insight - Neurologic Neurologic: CNII-XII intact, moves all extremities Plan Follow up with: PRIMARY CARE, [Primary Care Provider] - 7 Days
--- NOTE | 2017-02-08 08:52 | Event Note ---
Date: 02/08/17 MRI Brain and C-spine reviewed and nonacute w/o findings of BLEACH LIQUOR MAKER or PNS anatomic pathology beyond chronic post ACDF changes and DDD.Again, I suspect MSK process. 66 YO Mx HTN/HLD/CAD s/p CABG 3 weeks ago who subsequently c/o progressive R arm numbness/tingling assoc w/ ? weakness but painful throughout including elbow /wrist but not neck assoc w/ passive motion. Neuro exam intact w/o deficit beyond R arm decreased sensation. Plan and Recommendation: 1. Medical work up for MSK pathologies in the RUE 2. Can cont home AP/AC therapy. There is no neurologic indication for ASA/AC/ statin change. 3. We will sign off.
[2017-02-08] MEDS: BABY ASPIRIN PO SCH (09:30)
[2017-02-08] MEDS: COREG PO SCH (09:31)
[2017-02-08] MEDS: XARELTO PO SCH (09:31)
--- NOTE | 2017-02-08 10:27 | Query- Chest Pain ---
Dear Date: Certified Recreational Therapist/CDS:____Bryan Meléndez Phone#: Exercise your independent professional judgment when responding to query. Questions asked do not imply a particular answer is desired or expected. We greatly appreciate your clarification on this issue. Clinical Documentation States: 66 year old male was admitted on 02/05/17 The H&P states " Angina at rest Current Visit: Yes Status: Acute Plan to address problem: Cardiology team consulted, serial cardiac enzymes, ekg, telemetry monitoring, supportive care. " The progress note (02/07/17) " 66 YO Male with CAD, S/P CABG, HTN, HLD, Metabolic Syndrome, Noncompliance directly admitted at the request of the Cardiology team. Pt seen and evaluated in Dr. Washburn's office and found to have weakness, dizziness, and confusion. Pt had not taken any of his postoperative medication as prescribed. Pt evaluated upon arrival to telemetry floor. Pt denies fever, chills, CP, Palpitations, NVD, leg swelling, calf pain, hemoptysis, syncope, prolonged immobility/travel, Individual/family history of DVT/PE, productive cough, trauma, or recent ill contacts. " Clinical Findings Show: Echocardiography report states " ejection fraction is 55-60%, abnormal left ventricular diastolic function is observed " Please document the etiology of Chest Pain: [ ] Myocardial Infarction [ ] Pneumonia [ ] Mediastinitis [ ] Costochondritis [ ] Pulmonary Embolism [x ] Coronary Artery Disease [ ] GERD [ ] Other: [ ] Comment/Explanation: Present on Admission: [ x] Yes (Y) [ ] Clinically undeterminable (W) [ ] No(N) Please document response in your Progress Notes and/or Discharge Summary and indicate if the condition was present on admission. MTDD
[2017-02-08 10:44] LABS: Creatine Kinase MB 2.2 ng/mL (0.0-4.0)
--- NOTE | 2017-02-08 11:25 | Progress Note ---
Assessment and Plan Assessment: Generalized weakness / right arm numbness & tingling - MRI brain and c-spine with NAF, neurology evaluation completed. 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 ETOH use - drinks 10-12 beers daily. Plan: Currently stable cardiac status. Cont current management. Pt may discharge from cardiology standpoint. Pt to d/c to rehab facility in [place]. Follow up in our [place] office with Dr. Washburn on 02/19/2017 @ 1:15PM. Assessment and plan reviewed with pt at bedside. The patient has been seen in conjunction with Dr. Ty Renee who agrees with the assessment and plan of care. Subjective Date of service: 02/08/17 Principal diagnosis: weakness Interval history: Pt resting comfortably in bed, denies any cardiac complaints. VSS, no acute events overnight. Objective Last Vital Signs Temp 98.1 F 02/08/17 07:00 Pulse 97 H 02/08/17 09:31 Resp 18 02/08/17 07:00 BP 125/74 02/08/17 09:31 Pulse Ox 99 02/08/17 07:00 - Physical Examination General: Appears Well, No Apparent Distress HEENT: Positive: PERRL, Normocephaly, Mucus Membranes Moist Neck: Positive: neck supple, trachea midline Cardiac: Positive: Reg Rate and Rhythm, S1/S2 Lungs: Positive: Normal Exam, clear to auscultation, Normal Breath Sounds Neuro: Positive: Grossly Intact, Cranial Nerve 2-12 Intact, Other (RUE numbness/ tingling ) Abdomen: Positive: Unremarkable, Soft. Negative: Tender Skin: Positive: Clear, Other (sternotomy scar noted). Negative: Rash, Wound Musculoskeletal: No Fluid Collection, No Pain, Normal Range of Motion Extremities: Present: normal, upper extr. pulses, lower extr. pulses. Absent: edema - Labs and Meds Cardiac Enzymes 02/08/17 Range/Units 10:04 CK-MB (CK-2) 2.2 (0.0-4.0) ng/mL - Imaging and Cardiology EKG: report reviewed Echo: report reviewed (02/05/2017: EF 55 - 60%) - Telemetry EKG Rhythm: Sinus Rhythm - EKG Sinus rhythms and dysrhythmias: sinus rhythm
== END 2017-02-08 12:15 | DRG 91 ==
LOC: 4A 14:22 → UNDOADMIN 14:22 → 4A 15:07
PROVIDERS: ADMIT Internal Medicine; ATTEND Internal Medicine
DX: R20.2 Paresthesia of skin (principal); G93.40 Encephalopathy, unspecified; I25.119 Atherosclerotic heart disease of native coronary artery with unspecified angina pectoris; I10 Essential (primary) hypertension; E78.5 Hyperlipidemia, unspecified; F10.10 Alcohol abuse, uncomplicated; M19.011 Primary osteoarthritis, right shoulder; Z91.19 Patient's noncompliance with other medical treatment and regimen; Z95.1 Presence of aortocoronary bypass graft; Z95.5 Presence of coronary angioplasty implant and graft; Z82.49 Family history of ischemic heart disease and other diseases of the circulatory system
CPT/HCPCS: 36415; 70551; 71010; 72040; 72141; 80053; 80061; 82550; 82553; 82607; 82747; 84425; 84436; 84443; 84484; 85027; 85610; 93005; 93010; 93306; A9270-GY; G8978-GP; G8980-GP; J2270; J2405